=== PATIENT | female | born 1955 | race Caucasian/White ===

== ENCOUNTER 2016-10-23 22:21 | Outpatient (CLI) | payer MEDICAID | END 2016-10-23 22:22 | disposition home or self-care (01) | LOC: MADLABBHPM 22:21 | PROVIDERS: ATTEND Family Medicine | DX: I87.092 Postthrombotic syndrome with other complications of left lower extremity (principal) | CPT/HCPCS: 87070; 87205 ==

== ENCOUNTER 2016-11-23 15:51 | Outpatient (CLI) | payer MEDICAID ==
[2016-11-23 16:44] LABS: Hemoglobin 9.3 g/dL (12.0-16.0); Mean Corpuscular HGB CONC 32.5 g/dL (32.0-36.0); Mean Corpuscular Hemoglobin 28.1 pg (27.0-31.0); Mean Corpuscular Volume 86.3 fl (81.0-99.0); Mean Platelet Volume 6.2 fL (7.4-10.4); Platelet Count 204 thou/uL (130-400); RBC Distribution Width 13.2 % (11.5-14.5); Red Blood Cell (RBC) Count 3.33 mill/uL (4.20-5.40); White Blood Cell (WBC) Count 4.4 thou/uL (4.8-10.8)
[2016-11-23 16:45] LABS: Band 2 % (5-11); Eosinophils 2 % (0-10); Lymphocytes 29 % (21-51); MDiff Complete? YES; Monocytes 10 % (0-10); Neutrophil 57 % (42-75); PLT Morphology Comment Appears Adequate; RBC Morphology Normal
== END 2016-11-23 15:52 ==
LOC: MADLABBHPM 15:51
PROVIDERS: ATTEND Family Medicine
DX: D64.9 Anemia, unspecified (principal); D72.819 Decreased white blood cell count, unspecified; R76.8 Other specified abnormal immunological findings in serum
CPT/HCPCS: 36415; 82105; 82607; 82728; 82746; 83540; 83550; 85007; 85027; 85060